=== PATIENT | male | born 1980 | race Caucasian/White ===

== ENCOUNTER 2018-03-20 19:17 | Emergency (ER) | payer MEDICAID, SELFPAY ==
[~2018-03-20] VITALS: Ht 172.7 cm; Wt 78.2 kg
[2018-03-20] MEDS ORDERED: ODEF1TAB PO (19:24)
[2018-03-20] MEDS ORDERED: DICYCLOMINE 10 MG CAP PO ONE (20:00)
[2018-03-20] MEDS ORDERED: traMADol 50 MG TAB PO ONE (20:00)
[2018-03-20 20:09] LABS: BASO % 0.5 % (0.0-1.0); EOS # 0.2 10^3/uL (0.0-0.50); EOS % 2.5 % (0.0-3.0); HEMOGLOBIN 14.8 g/dl (13.5-17.5); LYMPH # 2.8 10^3/uL (1.5-4.5); LYMPH % 34.9 % (24.0-44.0); MEAN CORPUSCULAR HEMOGLOBIN 30.5 pg (27.0-33.0); MEAN CORPUSCULAR HGB CONC 32.9 g/dl (32.0-36.5); MEAN CORPUSCULAR VOLUME 92.8 fl (80.0-96.0); MONO # 0.5 10^3/uL (0.0-0.8); MONO % 6.5 % (0.0-5.0); NEUTROPHILS # 4.4 10^3/uL (1.8-7.7); NEUTROPHILS % 55.3 % (36.0-66.0); PLATELET COUNT, AUTOMATED 334 10^3/uL (150-450); RED BLOOD COUNT 4.85 10^6/uL (4.30-6.10); WHITE BLOOD COUNT 7.9 10^3/uL (4.0-10.0)
[2018-03-20 20:28] LABS: APPEARANCE, URINE HAZY (CLEAR); BACTERIA, URINE AUTO NEGATIVE (NEGATIVE); BILIRUBIN, URINE AUTO NEGATIVE (NEGATIVE); BLOOD, URINE BLOOD NEGATIVE (NEGATIVE); COLOR, URINE YELLOW (YELLOW); GLUCOSE, URINE (UA) AUTO NEGATIVE (NEGATIVE); KETONE, URINE AUTO NEGATIVE (NEGATIVE); LEUKOCYTE ESTERASE, URINE AUTO NEGATIVE (NEGATIVE); MUCUS, URINE SMALL (NEGATIVE); NITRITE, URINE AUTO NEGATIVE (NEGATIVE); PROTEIN, URINE AUTO NEGATIVE (NEGATIVE); RBC, URINE AUTO 0 /HPF (0-3); SPECIFIC GRAVITY URINE AUTO 1.027 (1.002-1.035); SQUAMOUS EPITHELIAL CELL UR AU 0 /HPF (0-6); WBC, URINE AUTO 1 /HPF (0-3)
--- NOTE | 2018-03-20 20:29 | REP ---
Clinical: Epigastric and abdominal pain. Technique: Upright view of the chest with supine and upright views of the abdomen and pelvis. Findings: Frontal upright view of the chest demonstrates no acute cardiopulmonary process or free air below the diaphragm to suspect pneumoperitoneum. Supine and upright views of the abdomen and pelvis demonstrate nonspecific bowel gas pattern without obstruction or perforation. Mild fecal stasis is suggested. No organomegaly. No abnormal calcifications. Skeletal structures normal for age. Impression: Nonspecific bowel gas pattern. Mild fecal stasis suggested. Electronically Signed by Barrera Leon MD 03/20/2018 08:21 P
[2018-03-20 20:35] LABS: ALBUMIN 3.2 GM/DL (3.2-5.2); ALT/SGPT 15 U/L (12-78); BILIRUBIN,TOTAL 0.3 MG/DL (0.2-1.0); BLOOD UREA NITROGEN 10 MG/DL (7-18); CARBON DIOXIDE LEVEL 28 MEQ/L (21-32); CHLORIDE LEVEL 108 MEQ/L (98-107); CREATININE FOR GFR 0.91 MG/DL (0.70-1.30); GLOMERULAR FILTRATION RATE > 60.0 (>60); GLUCOSE, FASTING 110 MG/DL (70-100); LIPASE 84 U/L (73-393); POTASSIUM SERUM 3.7 MEQ/L (3.5-5.1); SODIUM LEVEL 142 MEQ/L (136-145)
[2018-03-20] MEDS ORDERED: MIRA3350 PO (20:57)
[2018-03-20] MEDS ORDERED: DICY10CA13 PO (20:57)
[2018-03-20] MEDS ORDERED: MIRALAX *UNIT DOSE* 17GM PACKET PO STA (20:59)
[2018-03-20 21:10] VITALS: BP 125/89
== END 2018-03-20 21:16 | disposition home or self-care (01) ==
LOC: M ED 19:17
DX: R10.84 Generalized abdominal pain (principal)

== ENCOUNTER 2018-07-15 19:15 | Emergency (ER) | payer MEDICAID, OTHER ==
[~2018-07-15] VITALS: Ht 172.7 cm; Wt 81.8 kg
[2018-07-15 19:15] VITALS: BP 134/69
[~2018-07-15 19:15] MED LIST: DICY10CA13 PO; MIRA3350 PO; ODEF1TAB PO
[2018-07-15] MEDS ORDERED: ANUS2.5C2 TOP (21:24)
[2018-07-15] MEDS ORDERED: COLA100C5 PO (21:24)
[2018-07-15] MEDS ORDERED: DULC10SU2 PR (21:24)
[2018-07-15] MEDS ORDERED: MAGNESIUM CITRATE 300 ML BTL PO ONE (21:30)
--- NOTE | 2018-07-16 11:07 | REP ---
KUB, ABDOMEN AND PELVIS: Two KUB films of the abdomen and pelvis were performed. Moderate fecal material is seen throughout the colon. No dilated small bowel loops are seen, with no evidence of small bowel obstruction. No abnormal calcifications are seen. The visualized osseous structures appear unremarkable. IMPRESSION: Moderate fecal retention. Electronically Signed by Samm Armenta MD 07/16/2018 06:57 P
== END 2018-07-15 21:34 | disposition home or self-care (01) ==
LOC: M ED 19:15
DX: K59.00 Constipation, unspecified (principal); K64.4 Residual hemorrhoidal skin tags; I10 Essential (primary) hypertension; Z79.899 Other long term (current) drug therapy

== ENCOUNTER 2018-12-30 07:00 | Day surgery (SDC) | payer OTHER ==
[~2018-12-30] VITALS: Ht 175.3 cm; Wt 87.5 kg
[~2018-12-30 07:00] MED LIST changes: +ANUS2.5C2 TOP; +COLA100C5 PO; +DULC10SU2 PR; +NS 1,000 ML IV ONE
[2018-12-30] MEDS ORDERED: PROPOFOL 200 MG/20 ML VIAL As Ordered ONE ×2 (07:03→07:08)
[2018-12-30] MEDS ORDERED: LIDOCAINE 2% INJ 100 MG/5 ML SDV (FOR ANES.) As Ordered ONE (07:08)
--- NOTE | 2018-12-30 08:28 | ROOR ---
Patient Name: Michele Morse Procedure Date: 12/30/2018 7:53 AM Date of : 1980 Age: 38 Room: [facility] Gender: Male Note Status: Finalized Procedure: Colonoscopy Indications: Hematochezia Providers: Jasvir KENDALL MD Referring MD: Patricia TORRES MD. Requesting Provider: Medicines: Monitored Anesthesia Care Complications: No immediate complications. Procedure: Pre-Anesthesia Assessment: - The heart rate, respiratory rate, oxygen saturations, blood pressure, adequacy of pulmonary ventilation, and response to care were monitored throughout the procedure. The Colonoscope was introduced through the anus and advanced to 15 cm into the ileum. The colonoscopy was performed without difficulty. The patient tolerated the procedure well. The quality of the bowel preparation was good. Findings: The digital rectal exam findings include rectal tenderness. Ulcerated mucosa were present in the mid rectum and in the distal rectum. Biopsies were taken with a cold forceps for histology. The exam was otherwise normal throughout the examined colon. The terminal ileum appeared normal. Impression: - Rectal tenderness found on digital rectal exam. - Ulcerated inflamed mucosal lesion circumferentially involving the rectum continuously from 0 cm to 5 cm from verge. Biopsied to delineate inflammation/IBD vs malignancy - The rest of the colon is normal. - The examined portion of the ileum was normal. Recommendation: - Telephone endoscopist for pathology results in 2 weeks. Jasvir Kendall MD Jasvir KENDALL MD 12/30/2018 8:27:33 AM Electronically signed by Jasvir KENDALL MD Number of Addenda: 0 Note Initiated On: 12/30/2018 7:53 AM Estimated Blood Loss: Estimated blood loss: none.
[2018-12-30 08:40] VITALS: BP 113/64
== END 2018-12-30 08:46 | disposition home or self-care (01) ==
LOC: M OPP 07:00
PROVIDERS: ATTEND Internal Medicine Gastroenterology
DX: K92.1 Melena (principal); K62.89 Other specified diseases of anus and rectum; K63.3 Ulcer of intestine; F17.210 Nicotine dependence, cigarettes, uncomplicated; Z79.899 Other long term (current) drug therapy